=== PATIENT | female | born 1995 | race Hispanic/Latino ===

== ENCOUNTER 2020-03-30 09:57 | Emergency (ER) | payer SELFPAY ==
[~2020-03-30] VITALS: Ht 154.9 cm; Wt 75.0 kg
[2020-03-30] MEDS ORDERED: FLEXERIL5 M1 PO (10:55)
[2020-03-30] MEDS ORDERED: NAPROXEN DR500 MG PO (10:55)
[2020-03-30 13:08] VITALS: BP 106/43
== END 2020-03-30 14:00 | disposition home or self-care (01) | DRG 563 ==
LOC: ED 09:57
DX: S39.012A Strain of muscle, fascia and tendon of lower back, initial encounter (principal); R20.2 Paresthesia of skin; F41.9 Anxiety disorder, unspecified; X58.XXXA Exposure to other specified factors, initial encounter; Y93.E9 Activity, other interior property and clothing maintenance; Y99.0 Civilian activity done for income or pay
CPT/HCPCS: J0171

== ENCOUNTER 2020-06-28 | Emergency (ER) | payer SELFPAY ==
[~2020-06-28] MED LIST: FLEXERIL5 M1 PO; NAPROXEN DR500 MG PO
[2020-06-28 16:42] LABS: URINE BILIRUBIN - DIPSTICK NEGATIVE (NEGATIVE); URINE BLOOD DIPSTICK NEGATIVE (NEGATIVE); URINE CLARITY CLEAR; URINE COLOR YELLOW; URINE GLUCOSE - DIPSTICK NEGATIVE (NEGATIVE); URINE KETONE NEGATIVE (NEGATIVE); URINE LEUK ESTERASE NEGATIVE (Negative); URINE NITRITE - DIPSTICK NEGATIVE (Negative); URINE PROTEIN - DIPSTICK NEGATIVE (NEG-TRACE); URINE UROBILINOGEN - DIPSTICK 0.2 E.U./dL (0.2)
[2020-06-28 16:50] LABS: HEMATOCRIT 42.5 % (37.0-47.0); HEMOGLOBIN 13.5 g/dl (12.0-16.0); IMMATURE GRANULOCYTES 0.4 % (0.0-5.0); MEAN CELL VOLUME 79.4 fL CALC (80.0-100.0); MEAN CORPUSCULAR HGB 25.2 pG CALC (26.0-32.0); MEAN CORPUSCULAR HGB CONC 31.8 g/dL CAL (32.0-36.0); NEUT# 4.49 thou/uL (2.00-7.15); RED BLOOD COUNT 5.35 mill/uL (4.20-5.60); RED CELL DISTRI WIDTH 14.6 % (11.5-15.5)
[2020-06-28 17:07] LABS: ALBUMIN 4.6 g/dL (3.2-5.0); ALKALINE PHOSPHATASE 88 u/l (38-126); ANION GAP 11 (6-22 (CALC)); BILIRUBIN, TOTAL 0.9 mg/dL (0.0-1.4); BUN 9 mg/dL (7-17); BUN/CREATININE RATIO 19 (12-20 (CALC)); CARBON DIOXIDE 29 mmol/l (22-30); CHLORIDE 101 mmol/l (95-108); CREATININE 0.5 mg/dL (0.5-1.0); GFR > 60 ML/MIN (>=60 (CALC)); GFR FOR AFR.AMER. > 60 ML/MIN (>=60 (CALC)); SGOT/AST 48 u/l (14-36); SODIUM 138 mmol/l (137-146)
[2020-06-28 17:34] LABS: AMYLASE 75 u/l (30-110); LIPASE 92 u/l (23-300)
[2020-06-28] MEDS ORDERED: MOTRIN400 MG/TAB PO (20:17)
[2020-06-28] MEDS ORDERED: ORPHENADRINE100 MG PO (20:17)
== END 2020-06-28 21:39 | disposition home or self-care (01) | DRG 563 ==
PROVIDERS: Emergency Medicine
DX: S39.012A Strain of muscle, fascia and tendon of lower back, initial encounter (principal); F41.9 Anxiety disorder, unspecified; X58.XXXA Exposure to other specified factors, initial encounter
CPT/HCPCS: Q9967